=== PATIENT | male | born 1985 | race African-American/Black ===

== ENCOUNTER 2017-03-27 08:28 | Emergency (ER) | payer MEDICAID ==
[2017-03-27 09:25] LABS: BASOPHILS 0.3 % (0-2); EOSINOPHILS 1.7 % (0-7); HEMATOCRIT 43.7 % (42.0-54.0); HEMOGLOBIN 14.7 g/dL (13.5-17.5); LYMPHOCYTES 29.6 % (15-50); MCH 30.8 pg (26.0-34.0); MCHC 33.6 g/dL (31.0-37.0); MCV 91.4 fL (80.0-100.0); MEAN PLATELET VOLUME 9.4 fL (7.4-10.4); NEUTROPHILS 58.4 % (40-80); PLATELET COUNT 184 10x3/uL (130-400); RBC 4.78 10x6/uL (4.20-6.10); RDW 13.7 % (11.5-14.5); WBC 3.6 10x3/uL (4.8-10.8)
[2017-03-27 09:41] LABS: ALBUMIN 3.6 g/dL (3.4-5.0); ALKALINE PHOSPHATASE 68 U/L (46-116); ALT (SGPT) 22 U/L (10-68); BILIRUBIN - TOTAL 0.39 mg/dL (0.2-1.3); CALC OSMOLALITY 280 mosm/kg (275-300); CALCIUM 8.7 mg/dL (8.5-10.1); CARBON DIOXIDE 25.2 mmol/L (21.0-32.0); CHLORIDE - SERUM 107 mmol/L (98-107); CREATININE - SERUM 1.2 mg/dL (0.6-1.3); GLUCOSE 104 mg/dL (74-106); POTASSIUM - SERUM 3.8 mmol/L (3.5-5.1); PROTEIN - SERUM 7.5 g/dL (6.4-8.2); SODIUM 142 mmol/L (136-145); UREA NITROGEN 7 mg/dL (7-18); eGFR NON AFRICAN AMERICAN 76 mL/min (90-120)
== END 2017-03-27 10:44 | disposition home or self-care (01) ==
LOC: D.ER 08:28
PROVIDERS: Emergency Medicine
DX: K52.9 Noninfective gastroenteritis and colitis, unspecified (principal); J45.909 Unspecified asthma, uncomplicated

== ENCOUNTER 2018-09-25 13:12 | Emergency (ER) | payer MEDICARE ==
[~2018-09-25] VITALS: Ht 182.9 cm; Wt 159.1 kg
[2018-09-25 13:21] VITALS: Ht 182.9 cm; Wt 159.1 kg
[2018-09-25] MEDS ORDERED: HYDROCHLOROTH12.5 M1 PO (13:23)
[2018-09-25 14:01] LABS: APPEARANCE CLEAR (CLEAR); BILIRUBIN NEGATIVE (NEGATIVE); COLOR YELLOW (YELLOW); GLUCOSE NEGATIVE (NEGATIVE); KETONE SMALL mg/dL (NEGATIVE); NITRITE NEGATIVE (NEGATIVE); PROTEIN NEGATIVE (NEGATIVE); SPECIFIC GRAVITY 1.025 (1.005-1.020)
[2018-09-25] MEDS ORDERED: PHENAZOPYRIDIN200 MG PO (14:49)
[2018-09-25] MEDS ORDERED: FLAGYL500 MG PO (14:49)
[2018-09-25 15:27] VITALS: BP 151/109
== END 2018-09-25 17:15 | disposition home or self-care (01) ==
LOC: D.ER 13:12
PROVIDERS: Family Medicine
DX: R30.0 Dysuria (principal)

== ENCOUNTER 2019-01-31 03:48 | Emergency (ER) | payer MEDICARE ==
[~2019-01-31] VITALS: Ht 185.4 cm; Wt 127.3 kg
[~2019-01-31 03:48] MED LIST: FLAGYL500 MG PO; HYDROCHLOROTH12.5 M1 PO; PHENAZOPYRIDIN200 MG PO
[2019-01-31 03:52] VITALS: Ht 185.4 cm; Wt 127.3 kg
[2019-01-31] MEDS ORDERED: TYLENOL W/CODEI1 TAB PO (04:38)
[2019-01-31 05:01] VITALS: BP 122/80
== END 2019-01-31 05:00 | disposition home or self-care (01) ==
LOC: D.ER 03:48
DX: S62.304A Unspecified fracture of fourth metacarpal bone, right hand, initial encounter for closed fracture (principal); F17.200 Nicotine dependence, unspecified, uncomplicated; I10 Essential (primary) hypertension; W19.XXXA Unspecified fall, initial encounter

== ENCOUNTER 2019-03-19 02:30 | Emergency (ER) | payer MEDICARE ==
[~2019-03-19] VITALS: Ht 185.4 cm; Wt 102.1 kg
[~2019-03-19 02:30] MED LIST changes: +TYLENOL W/CODEI1 TAB PO
[2019-03-19 02:33] VITALS: Ht 185.4 cm; Wt 102.1 kg
[2019-03-19] MEDS ORDERED: ULTRAM50 MG PO (02:59)
[2019-03-19 03:37] VITALS: BP 150/96
== END 2019-03-19 03:38 | disposition home or self-care (01) ==
LOC: D.ER 02:30
DX: S69.91XA Unspecified injury of right wrist, hand and finger(s), initial encounter (principal); X58.XXXA Exposure to other specified factors, initial encounter; Y93.89 Activity, other specified; Y92.89 Other specified places as the place of occurrence of the external cause

== ENCOUNTER 2019-04-10 20:04 | Emergency (ER) | payer MEDICARE ==
[~2019-04-10] VITALS: Ht 185.4 cm; Wt 163.6 kg
[~2019-04-10 20:04] MED LIST changes: +ULTRAM50 MG PO
[2019-04-10 20:44] VITALS: Ht 185.4 cm; Wt 163.6 kg
[2019-04-10 21:08] LABS: APPEARANCE CLEAR (CLEAR); BILIRUBIN NEGATIVE (NEGATIVE); COLOR YELLOW (YELLOW); GLUCOSE NEGATIVE (NEGATIVE); KETONE NEGATIVE (NEGATIVE); NITRITE NEGATIVE (NEGATIVE); PROTEIN NEGATIVE (NEGATIVE); SPECIFIC GRAVITY 1.015 (1.005-1.020); UROBILINOGEN NORMAL (NORMAL)
[2019-04-10 22:11] VITALS: BP 132/89
[2019-04-19 11:09] LABS: CHLAMYDIA TRACHOMATIS, NAA Negative (Negative)
== END 2019-04-10 22:10 | disposition home or self-care (01) ==
LOC: D.ER 20:04
PROVIDERS: Emergency Medicine
DX: R30.0 Dysuria (principal); N34.2 Other urethritis

== ENCOUNTER 2019-08-01 06:12 | Emergency (ER) | payer MEDICARE ==
[~2019-08-01] VITALS: Ht 185.4 cm; Wt 152.3 kg
[2019-08-01 06:31] VITALS: Ht 185.4 cm; Wt 152.3 kg
[2019-08-01] MEDS ORDERED: HYDROCODON-ACE1 EAC2 PO (06:43)
[2019-08-01] MEDS ORDERED: CORTISPORIN EY7.5 ML EACH EYE (06:43)
[2019-08-01 06:51] VITALS: BP 145/101
== END 2019-08-01 06:51 | disposition home or self-care (01) ==
LOC: D.ER 06:12
DX: H10.9 Unspecified conjunctivitis (principal); I10 Essential (primary) hypertension; Z72.0 Tobacco use